=== PATIENT | male | born 1955 | race African-American/Black ===

== ENCOUNTER 2019-10-04 16:42 | Inpatient (IN) | payer OTHER, MEDICARE ==
[~2019-10-04] VITALS: Ht 182.9 cm; Wt 89.5 kg
[~2019-10-04 16:42] MED LIST: ASPI81CH49 PO; B12 PO; BENA40TA7 PO; HYDR-2551 PO; METF-370 PO; MULTTAB PO; ONGLYZA PO
[2019-10-04 17:54] LABS: Basophils # (auto) 0 10 ^3/uL (0-0.2); Basophils % (auto) 0.8 % (0.0-2.0); Eosinophils # (auto) 0.1 10 ^3/uL (0-0.8); Eosinophils % (auto) 2.1 % (0.0-7.0); Hematocrit 34.1 % (41.0-53.0); Hemoglobin 11.1 g/dL (13.5-17.5); Lymphocytes # (auto) 0.6 10 ^3/uL (0.4-5.4); Lymphocytes % (auto) 19.3 % (10.0-50.0); Mean Corpuscular Hemoglobin 30.4 pg (28.0-32.0); Mean Corpuscular Hgb Conc. 32.6 g/dL (32.0-36.0); Mean Corpuscular Volume 93.1 fL (80.0-100.0); Monocytes # (auto) 0.3 10 ^3/uL (0-1.3); Monocytes % (auto) 10.7 % (0.0-12.0); Neutrophils % (auto) 67.1 % (37.0-80.0); Nucleated Red Blood Cells % 0.2 %; Platelet Count (auto) 106 10^3/uL (140-450); Red Blood Cells 3.67 10^6/uL (4.5-5.90); Red Cell Distribution Width 17.1 % (11.8-14.3)
[2019-10-04 18:16] LABS: Albumin 3.1 g/dL (3.4-5.0); Magnesium 2.1 mg/dL (1.6-2.6); Potassium 4.5 mmol/L (3.5-5.1)
[2019-10-04 18:21] LABS: Bilirubin, Total 1.5 mg/dL (0.2-1.0); Total Protein 6.7 g/dL (6.4-8.2)
[2019-10-04] MEDS ORDERED: SODIUM CHLORIDE 0.9% 500 ML IV ONE (21:45)
[2019-10-04] MEDS ORDERED: DEXTROSE (50%) 50ML SYRG IV PRN (22:15)
[2019-10-04] MEDS ORDERED: MORPHINE SULF INJ 2 MG/ML SYRINGE 1ML IV PRN (22:15)
[2019-10-04] MEDS ORDERED: NITROGLYCERIN 0.4 MG SL TAB SL PRN (22:15)
[2019-10-05] VITALS (7 sets, daily range): BP systolic 97–149; BP diastolic 58–83
--- NOTE | 2019-10-05 01:00 | NUR ---
Telemetry admit from [facility]RI[facility]CON[facility] admitted to Telemetry unit after SBAR received. Patient oriented to Rian johns RN, west unit, 284 room, A bed, and unit policies regarding patient care and visiting hours. Patient now on continuous telemetry monitoring, tele box # [id number] and telemetry reading on arrival to unit is sinus rhythm. Patient placed on bedside oxygen, weighed by bedscale and encouraged to call if they need something. All questions and concerns addressed, patient verbalized understanding.
[2019-10-05] MEDS: SULFAMETHOX W/TRIMETH(800/160MG) DS TAB PO SCH ×3 (01:36→22:03)
[2019-10-05] MEDS: DOXYCYCLINE 100 MG TAB/CAP PO SCH ×3 (01:36→22:03)
[2019-10-05] MEDS: traMADol HCL 50 MG TAB PO PRN ×2 (01:36→22:19)
[2019-10-05] MEDS ORDERED: TRAM50TA2 PO (03:21)
[2019-10-05] MEDS ORDERED: FURO40TA4 PO (03:21)
[2019-10-05] MEDS ORDERED: VENL37.511 PO (03:21)
[2019-10-05] MEDS ORDERED: DOXY100C2 PO (03:21)
[2019-10-05] MEDS ORDERED: SULF400I3 PO (03:21)
[2019-10-05] MEDS ORDERED: SULF400T11 PO (03:21)
[2019-10-05] MEDS ORDERED: SEVE800T8 PO (03:21)
[2019-10-05] MEDS ORDERED: MORP1CAP31 PO (03:21)
[2019-10-05] MEDS ORDERED: CARV25TA PO (03:23)
[2019-10-05] MEDS: ACCU-CHEK COMFORT CURVE STRIP VI SCH ×4 (06:20→22:08)
[2019-10-05] MEDS: InsuLIN REG 1unit/0.01ml Soln (100units/ml) SC SCH ×4 (06:20→22:00)
[2019-10-05] MEDS: HEPARIN SODIUM (PORCINE) 5000 UNITS/ML 1ML VIAL SC SCH ×3 (06:23→22:02)
[2019-10-05 06:52] LABS: Basophils # (auto) 0 10 ^3/uL (0-0.2); Basophils % (auto) 0.7 % (0.0-2.0); Eosinophils # (auto) 0.1 10 ^3/uL (0-0.8); Eosinophils % (auto) 4.3 % (0.0-7.0); Hematocrit 32.4 % (41.0-53.0); Hemoglobin 10.7 g/dL (13.5-17.5); Lymphocytes # (auto) 0.8 10 ^3/uL (0.4-5.4); Lymphocytes % (auto) 27.6 % (10.0-50.0); Mean Corpuscular Hemoglobin 30.7 pg (28.0-32.0); Monocytes # (auto) 0.3 10 ^3/uL (0-1.3); Neutrophils # (auto) 1.6 10 ^3/uL (1.6-8.6); Neutrophils % (auto) 56.4 % (37.0-80.0); Nucleated Red Blood Cells % 0.1 %; Platelet Count (auto) 108 10^3/uL (140-450); Red Blood Cells 3.48 10^6/uL (4.5-5.90); White Blood Cell 2.8 10^3/uL (4.4-10.8)
[2019-10-05 07:10] LABS: BUN/Creatinine Ratio 3.6; Calcium 7.8 mg/dL (8.5-10.1); Potassium 3.9 mmol/L (3.5-5.1)
--- NOTE | 2019-10-05 07:30 | NUR ---
Opening Shift Note Assumed care of patient, awake and alert. No S/S of distress/SOB or pain. Instructed on POC and to call for assist PRN, will continue to monitor for changes Q1hr and PRN. Bed is locked and in lowest position. Call light within reach.
[2019-10-05] MEDS: SEVELAMER 800 MG TAB PO SCH ×3 (08:00→18:31)
[2019-10-05] MEDS ORDERED: LORazepam 2MG/ML-1ML VIAL IV ONE (09:15)
[2019-10-05 09:49] LABS: BUN/Creatinine Ratio 3.5; Potassium 4.5 mmol/L (3.5-5.1)
--- NOTE | 2019-10-05 09:49 | NUR ---
CT Patient taken to radiology for CT via wheelchair, no distress noted upon discharge.
[2019-10-05] MEDS ORDERED: VENLAFAXINE HCL 37.5MG TABLET PO ONE (10:00)
[2019-10-05] MEDS ORDERED: SODIUM CHL 0.9% 1000 ML BAG XX ONE (10:15)
[2019-10-05] MEDS ORDERED: IOHEXOL 350 MG/ML 100ML IJ ONE (10:20)
[2019-10-05 10:28] LABS: % Iron Saturation 22.6 % (20-55)
[2019-10-05] MEDS: ASPirin-EC 81 mg tab PO SCH (14:18)
--- NOTE | 2019-10-05 14:42 | NUR ---
HOME MEDICATIONS Home medications brought to pharmacy.
[2019-10-05] MEDS ORDERED: ATORVASTATIN 20 MG TAB PO SCH (22:00)
--- NOTE | 2019-10-05 23:10 | NUR ---
Spoke to MD Edil Laws and notified MD of patient requesting home medication morphine er 15 mg po prn bid. MD Laws provided new order: [place] 5/325 mg po q6 prn and stop tramadol order. read back and confirmed with MD Laws.
[2019-10-06] MEDS: HYDROcodone-ACET 5/325MG TAB PO PRN ×2 (01:21→09:57)
[2019-10-06 05:31] VITALS: BP 161/87
[2019-10-06] MEDS: HEPARIN SODIUM (PORCINE) 5000 UNITS/ML 1ML VIAL SC SCH ×2 (05:46→14:00)
[2019-10-06] MEDS: InsuLIN REG 1unit/0.01ml Soln (100units/ml) SC SCH ×3 (05:53→17:00)
[2019-10-06] MEDS: ACCU-CHEK COMFORT CURVE STRIP VI SCH ×3 (05:54→17:19)
[2019-10-06 07:53] LABS: Basophils # (auto) 0 10 ^3/uL (0-0.2); Basophils % (auto) 0.9 % (0.0-2.0); Eosinophils # (auto) 0.2 10 ^3/uL (0-0.8); Eosinophils % (auto) 6.9 % (0.0-7.0); Hematocrit 33.7 % (41.0-53.0); Hemoglobin 11.1 g/dL (13.5-17.5); Lymphocytes # (auto) 0.9 10 ^3/uL (0.4-5.4); Lymphocytes % (auto) 30.5 % (10.0-50.0); Mean Corpuscular Hemoglobin 30.4 pg (28.0-32.0); Mean Corpuscular Hgb Conc. 32.9 g/dL (32.0-36.0); Mean Corpuscular Volume 92.4 fL (80.0-100.0); Monocytes # (auto) 0.3 10 ^3/uL (0-1.3); Monocytes % (auto) 10.6 % (0.0-12.0); Neutrophils # (auto) 1.5 10 ^3/uL (1.6-8.6); Neutrophils % (auto) 51.1 % (37.0-80.0); Nucleated Red Blood Cells % 0.1 %; Platelet Count (auto) 116 10^3/uL (140-450); Red Blood Cells 3.65 10^6/uL (4.5-5.90); Red Cell Distribution Width 16.8 % (11.8-14.3); White Blood Cell 2.9 10^3/uL (4.4-10.8)
[2019-10-06 08:00] VITALS: BP 166/80
[2019-10-06] MEDS: SEVELAMER 800 MG TAB PO SCH ×3 (08:02→17:15)
[2019-10-06 08:23] LABS: Calcium 8.2 mg/dL (8.5-10.1); Magnesium 2.1 mg/dL (1.6-2.6); Potassium 3.9 mmol/L (3.5-5.1)
[2019-10-06 09:00] VITALS: BP 166/80
[2019-10-06] MEDS ORDERED: CINA30TA2 PO (09:44)
[2019-10-06] MEDS ORDERED: NIFE1TAB31 PO (09:44)
[2019-10-06] MEDS: SULFAMETHOX W/TRIMETH(800/160MG) DS TAB PO SCH (09:51)
[2019-10-06] MEDS: ASPirin-EC 81 mg tab PO SCH (09:51)
[2019-10-06] MEDS: DOXYCYCLINE 100 MG TAB/CAP PO SCH (09:51)
[2019-10-06 10:15] LABS: Hepatitis B Surface Antigen Negative (Negative)
[2019-10-06 10:31] LABS: Hepatitis A Ab IgM Negative
[2019-10-06 10:45] LABS: Hepatitis B Core IgM Negative
[2019-10-06 10:51] LABS: Hepatitis C Antibody Negative (Negative)
[2019-10-06 13:00] VITALS: BP 131/80
[2019-10-06 13:56] VITALS: BP 131/81
[2019-10-06 16:46] VITALS: BP 154/80
== END 2019-10-06 19:15 | disposition home health service (06) | DRG 312 ==
LOC: EDBD 16:42 → ER 16:42 → TELE 16:43 → TELE-WESTW 23:29
PROVIDERS: ADMIT Hospitalist; ATTEND Hospitalist
PROC: 5A1D70Z Performance of Urinary Filtration, Intermittent, Less than 6 Hours Per Day (ICD-10-PCS; principal; 2019-10-05)
DX: I95.1 Orthostatic hypotension (principal); N18.6 End stage renal disease; I13.2 Hypertensive heart and chronic kidney disease with heart failure and with stage 5 chronic kidney disease, or end stage renal disease; D61.818 Other pancytopenia; N25.81 Secondary hyperparathyroidism of renal origin; Q61.3 Polycystic kidney, unspecified; E11.65 Type 2 diabetes mellitus with hyperglycemia; R79.89 Other specified abnormal findings of blood chemistry; D63.1 Anemia in chronic kidney disease; I50.9 Heart failure, unspecified; E11.22 Type 2 diabetes mellitus with diabetic chronic kidney disease; F17.210 Nicotine dependence, cigarettes, uncomplicated; Z82.49 Family history of ischemic heart disease and other diseases of the circulatory system; Z83.3 Family history of diabetes mellitus; Z99.2 Dependence on renal dialysis; Z95.2 Presence of prosthetic heart valve; Z80.6 Family history of leukemia
CPT/HCPCS: 36415; 71045; 71275; 80048; 80053; 80074; 82728; 82962; 83540; 83550; 83735; 84484; 85025; 85379; 87081; 90935; 93005; 93306; 93970; 96374; G0378

== ENCOUNTER 2021-01-29 01:41 | Inpatient (IN) | payer OTHER, MEDICARE ==
[~2021-01-29] VITALS: Ht 185.4 cm; Wt 83.5 kg
[2021-01-29] VITALS (7 sets, daily range): BP systolic 74–275; BP diastolic 36–131
[~2021-01-29 01:41] MED LIST changes: -ASPI81CH49 PO; -B12 PO; -BENA40TA7 PO; +CARV25TA PO; +CINA30TA2 PO; +DOXY100C2 PO; +FURO40TA4 PO; -HYDR-2551 PO; -METF-370 PO; +MORP1CAP31 PO; -MULTTAB PO; +NIFE1TAB31 PO; -ONGLYZA PO; +SEVE800T8 PO; +SULF400T11 PO; +TRAM50TA2 PO; +VENL1TAB97 PO
[2021-01-29 03:55] LABS: Basophils # (auto) 0 10 ^3/uL (0-0.2); Basophils % (auto) 0.3 % (0.0-2.0); Eosinophils # (auto) 0 10 ^3/uL (0-0.8); Eosinophils % (auto) 0.4 % (0.0-7.0); Hematocrit 36.5 % (41.0-53.0); Lymphocytes # (auto) 0.3 10 ^3/uL (0.4-5.4); Lymphocytes % (auto) 3.8 % (10.0-50.0); Mean Corpuscular Hemoglobin 29.5 pg (28.0-32.0); Mean Corpuscular Hgb Conc. 32.9 g/dL (32.0-36.0); Mean Corpuscular Volume 89.6 fL (80.0-100.0); Monocytes # (auto) 0.4 10 ^3/uL (0-1.3); Monocytes % (auto) 4.3 % (0.0-12.0); Neutrophils # (auto) 7.7 10 ^3/uL (1.6-8.6); Neutrophils % (auto) 91.2 % (37.0-80.0); Nucleated Red Blood Cells % 0.1 %; Red Blood Cells 4.07 10^6/uL (4.5-5.90); Red Cell Distribution Width 15.4 % (11.8-14.3); White Blood Cell 8.5 10^3/uL (4.4-10.8)
[2021-01-29 04:15] LABS: Albumin 3.6 g/dL (3.4-5.0); Calcium 8.7 mg/dL (8.5-10.1); Potassium 4.1 mmol/L (3.5-5.1)
[2021-01-29 04:26] LABS: Bilirubin, Total 1.8 mg/dL (0.2-1.0); Total Protein 7.7 g/dL (6.4-8.2)
[2021-01-29] MEDS ORDERED: LORazepam 2MG/ML-1ML VIAL IV ONE (07:00)
[2021-01-29] MEDS ORDERED: FUROSEMIDE 20 MG/2 ML VIAL ONE (07:07)
[2021-01-29] MEDS ORDERED: DexAMETHasone SOD PHOS 10MG/1ML VIAL INJ IV ONE (07:15)
[2021-01-29] MEDS ORDERED: FUROSEMIDE 40 MG/4 ML VIAL IV ONE (07:15)
[2021-01-29] MEDS ORDERED: ETOMIDATE (2MG/ML) 20ML VIAL IV ONE ×2 (09:07→13:15)
[2021-01-29] MEDS ORDERED: fentaNYL Drip 2500mCg/250mlNS 250 ML IV ONE (09:07)
[2021-01-29] MEDS ORDERED: MIDAZOLAM DRIP 50 mg/50mL 50 ML IV ONE (09:07)
[2021-01-29] MEDS ORDERED: SUCCINYLCHOLINE CHLORIDE 20 MG/ML 10ML VIAL IV ONE ×2 (09:07→13:15)
[2021-01-29] MEDS ORDERED: SODIUM CHL 0.9% 1000 ML BAG XX ONE (09:15)
[2021-01-29] MEDS ORDERED: ALBUMIN 25% 100 ML IV ONE (09:15)
[2021-01-29] MEDS ORDERED: NITROGLYCERIN 0.4 MG SL TAB SL PRN (12:00)
[2021-01-29] MEDS ORDERED: MORPHINE SULFATE INJECTION 2 MG/ML SYRG IV PRN (12:00)
[2021-01-29] MEDS ORDERED: hydrALAZINE HCL 20 MG/ML VL IV PRN (12:00)
[2021-01-29] MEDS ORDERED: MIDAZOLAM DRIP 50 mg/50mL 50 ML IV SCH (13:15)
[2021-01-29] MEDS ORDERED: fentaNYL Drip 2500mCg/250mlNS 250 ML IV SCH (14:00)
[2021-01-29] MEDS ORDERED: NOREPINEPHRINE 8 MG/250ML KIT 250 ML IV SCH (14:00)
[2021-01-29] MEDS ORDERED: NOREPINEPHRINE 8 MG/250ML KIT 250 ML IV ONE (14:18)
[2021-01-29] MEDS ORDERED: PROPOFOL 100 ML IV ONE (14:35)
[2021-01-29] MEDS ORDERED: PROPOFOL 100 ML IV SCH (14:45)
[2021-01-29] MEDS ORDERED: EPINEPHrine HCL 250 ML IV ONE (14:54)
[2021-01-29] MEDS ORDERED: SODIUM BICARBONATE 8.4 % INJ 50ML VIAL IV ONE ×2 (14:59)
[2021-01-29] MEDS ORDERED: PIPERACILLIN-TAZOB 2.25GM 50 ML IV SCH (15:00)
[2021-01-29] MEDS ORDERED: VANCOMYCIN PER PHARMACY 0 MG IV SCH (15:45)
[2021-01-29 16:18] LABS: INR 1.55 (0.9-1.15)
[2021-01-29] MEDS ORDERED: VANCOMYCIN 1GM/250ML 250 ML IV ONE (17:00)
[2021-01-30] MEDS ORDERED: PANTOPRAZOLE 40 MG/10 ML VIAL INJ IV SCH (10:00)
== END 2021-01-29 15:40 | DRG 208 ==
LOC: EDBD 01:41 → ER 01:43 → TELE 11:52
PROVIDERS: ADMIT Internal Medicine; ATTEND Internal Medicine
PROC: 5A1D70Z Performance of Urinary Filtration, Intermittent, Less than 6 Hours Per Day (ICD-10-PCS; principal; 2021-01-29)
PROC: 5A09357 Assistance with Respiratory Ventilation, Less than 24 Consecutive Hours, Continuous Positive Airway Pressure (ICD-10-PCS; 2021-01-29)
PROC: 5A12012 Performance of Cardiac Output, Single, Manual (ICD-10-PCS; 2021-01-29)
PROC: 06HY33Z Insertion of Infusion Device into Lower Vein, Percutaneous Approach (ICD-10-PCS; 2021-01-29)
PROC: 5A1935Z Respiratory Ventilation, Less than 24 Consecutive Hours (ICD-10-PCS; 2021-01-29)
PROC: 0BH17EZ Insertion of Endotracheal Airway into Trachea, Via Natural or Artificial Opening (ICD-10-PCS; 2021-01-29)
DX: J96.01 Acute respiratory failure with hypoxia (principal); N18.6 End stage renal disease; J18.9 Pneumonia, unspecified organism; I13.2 Hypertensive heart and chronic kidney disease with heart failure and with stage 5 chronic kidney disease, or end stage renal disease; J98.11 Atelectasis; E11.22 Type 2 diabetes mellitus with diabetic chronic kidney disease; E66.01 Morbid (severe) obesity due to excess calories; F32.9 Major depressive disorder, single episode, unspecified; I46.9 Cardiac arrest, cause unspecified; I50.9 Heart failure, unspecified; Z20.822 Contact with and (suspected) exposure to COVID-19; Z79.899 Other long term (current) drug therapy; Z80.6 Family history of leukemia; Z82.49 Family history of ischemic heart disease and other diseases of the circulatory system; Z83.3 Family history of diabetes mellitus; Z99.2 Dependence on renal dialysis; Z68.24 Body mass index [BMI] 24.0-24.9, adult
CPT/HCPCS: 31500; 36415; 36600; 71045; 80053; 82805; 82962; 83880; 84484; 85025; 85610; 87040; 87070; 87077; 87186; 87205; 87426; 90935; 92950; 93005; 94002; 94660; 96365; 96366; 96368; 96375; 99291; G0378; J0171; J0330; J1100; J2250; J2704; P9047